=== PATIENT | male | born 2000 | race Two or more races ===

== ENCOUNTER 2023-06-18 23:06 | Emergency (ER) | payer MEDICAID, OTHER ==
[~2023-06-18] VITALS: Ht 172.7 cm; Wt 99.8 kg
[2023-06-19 03:02] VITALS: BP 108/66; TEMP 98; O2SAT 100
== END 2023-06-19 03:03 | disposition home or self-care (01) ==
LOC: ER 23:11
DX: S13.9XXA Sprain of joints and ligaments of unspecified parts of neck, initial encounter (principal); S50.02XA Contusion of left elbow, initial encounter; V89.2XXA Person injured in unspecified motor-vehicle accident, traffic, initial encounter; Y93.89 Activity, other specified; Y92.89 Other specified places as the place of occurrence of the external cause; Y99.8 Other external cause status
CPT/HCPCS: 71250-TC; 72125-TC; 73080-TC